=== PATIENT | female | born 1980 | race Caucasian/White ===

== ENCOUNTER 2017-10-16 09:03 | Emergency (ER) | payer BC, OTHER ==
[~2017-10-16] VITALS: Ht 167.6 cm; Wt 102.5 kg
[2017-10-16] MEDS ORDERED: LORazepam 0.5 MG TAB PO ONE (09:45)
[2017-10-16 10:14] LABS: Urine Bilirubin Negative (Negative); Urine Blood Negative /uL (Negative); Urine Color Yellow (Yellow); Urine Glucose Normal (Normal); Urine Ketone Negative (Negative); Urine Mucus FEW (None Seen); Urine Nitrite Negative (Negative); Urine RBC 2 /hpf (0 - 4); Urine Squamous Epithelial Cell FEW /hpf (<5); Urine Urobilinogen Normal (Negative)
[2017-10-16 10:41] LABS: Basophils # (auto) 0.1 uL; Eosinophils # (auto) 0.1 uL; Hemoglobin 14.4 g/dL (12.2-16.2); Lymphocytes # (auto) 2.1 uL; Mean Platelet Volume 7.9 fL (6.9-10.8); Monocytes # (auto) 0.5 uL; Nucleated Red Blood Cells % 0.1 %; Platelet Count (auto) 267 10^3/uL (140-450)
[2017-10-16 10:43] LABS: Basophils % (auto) 0.8 % (0.0-2.0); Eosinophils % (auto) 1.2 % (0.0-7.0); Hematocrit 42.7 % (36.0-46.0); Lymphocytes % (auto) 25.9 % (10.0-50.0); Mean Corpuscular Hemoglobin 34.1 pg (28.0-32.0); Mean Corpuscular Hgb Conc. 33.7 g/dL (32.0-36.0); Mean Corpuscular Volume 101.3 fL (80.0-100.0); Monocytes % (auto) 6.3 % (0.0-12.0); Neutrophils # (auto) 5.4 uL; Neutrophils % (auto) 65.8 % (37.0-80.0); Red Cell Distribution Width 13.3 % (11.8-14.3); White Blood Cell 8.2 10^3/uL (4.4-10.8)
[2017-10-16 10:55] LABS: Albumin 3.7 g/dL (3.4-5.0); Calcium 8.9 mg/dL (8.5-10.1); Potassium 4.9 mmol/L (3.5-5.1)
[2017-10-16 10:58] LABS: Bilirubin, Total 0.2 mg/dL (0.2-1.0); Total Protein 7.4 g/dL (6.4-8.2)
[2017-10-16 12:14] VITALS: BP 151/94
== END 2017-10-16 12:41 | disposition home or self-care (01) ==
LOC: ER 09:03
DX: F41.9 Anxiety disorder, unspecified (principal); F17.210 Nicotine dependence, cigarettes, uncomplicated
CPT/HCPCS: 36415; 80053; 81001; 84484; 85025; 93005

== ENCOUNTER 2017-11-06 07:01 | Inpatient (IN) | payer BC ==
[~2017-11-06] VITALS: Ht 167.6 cm; Wt 101.5 kg
[2017-11-06 07:45] LABS: Urine Bacteria FEW /hpf (None Seen); Urine Blood Negative /uL (Negative); Urine Hyaline Cast MANY /lpf (0 - 2); Urine Mucus MODERATE (None Seen); Urine Specific Gravity 1.039 (1.001-1.035); Urine WBC 5 /hpf (0 - 5)
[2017-11-06 07:47] LABS: Eosinophils # (auto) 0.1 uL; Monocytes # (auto) 0.4 uL; Red Blood Cells 4.61 10^6/uL (4.0-5.20); White Blood Cell 8.7 10^3/uL (4.4-10.8)
[2017-11-06 07:49] LABS: Basophils # (auto) 0.1 uL; Basophils % (auto) 0.7 % (0.0-2.0); Eosinophils % (auto) 1.6 % (0.0-7.0); Hemoglobin 15.9 g/dL (12.2-16.2); Lymphocytes # (auto) 2.6 uL; Lymphocytes % (auto) 29.5 % (10.0-50.0); Mean Corpuscular Hemoglobin 34.4 pg (28.0-32.0); Mean Corpuscular Hgb Conc. 33.7 g/dL (32.0-36.0); Monocytes % (auto) 4.9 % (0.0-12.0); Neutrophils # (auto) 5.5 uL; Neutrophils % (auto) 63.3 % (37.0-80.0); Nucleated Red Blood Cells % 0.2 %; Platelet Count (auto) 320 10^3/uL (140-450); Red Cell Distribution Width 13.4 % (11.8-14.3)
[2017-11-06 07:59] LABS: Albumin 4.4 g/dL (3.4-5.0); BUN/Creatinine Ratio 9.8; Calcium 9.5 mg/dL (8.5-10.1); Potassium 4.3 mmol/L (3.5-5.1)
[2017-11-06 08:02] LABS: Bilirubin, Total 0.6 mg/dL (0.2-1.0); Total Protein 8.3 g/dL (6.4-8.2)
[2017-11-06] MEDS ORDERED: NITROGLYCERIN 0.4 MG SL TAB SL PRN (12:30)
[2017-11-06] MEDS ORDERED: METOPROLOL TARTRATE 25 MG TAB PO ONE ×2 (12:30→12:45)
[2017-11-06] MEDS ORDERED: ACETAMINOPHEN 500 MG TAB PO PRN (12:30)
[2017-11-06] MEDS ORDERED: LORazepam 0.5 MG TAB PO PRN (12:30)
[2017-11-06] MEDS ORDERED: PROMETHAZINE HCL 25 MG/ML 1ML IV PRN (12:30)
[2017-11-06] MEDS ORDERED: TEMAZEPAM 15 MG CAP PO PRN (12:30)
[2017-11-06] MEDS ORDERED: cloNIDine HCL 0.1 MG TAB PO ONE (12:30)
[2017-11-06] MEDS ORDERED: cefTRIAXone 1GM/10ml IVPUSH 10 ML IV ONE (12:30)
[2017-11-06] MEDS ORDERED: ASPirin 81 mg TAB PO ONE ×2 (12:30→12:45)
[2017-11-06] MEDS ORDERED: LACTULOSE 20Gm/30ML SOLN PO PRN (12:30)
[2017-11-06] MEDS ORDERED: MORPHINE SULF INJ 2 MG/ML SYRINGE 1ML IV PRN (12:30)
[2017-11-06] MEDS ORDERED: NITROGLYCERIN 0.2MG/HR TOPICAL PATCH TD ONE (12:45)
[2017-11-06] MEDS ORDERED: MORPHINE SULFATE 10 MG/ML INJ 1ML SDV IV PRN (12:45)
[2017-11-06] MEDS: SODIUM CHLORIDE 0.9% 1,000 ML IV SCH ×2 (14:15→22:30)
[2017-11-06] MEDS ORDERED: LIDOCAINE 2%HCL (LOCAL ANESTH.) INJ 20ML MDV ONE (15:51)
[2017-11-06] MEDS ORDERED: IODIXANOL 320MG/ML 100ML BTL IV ONE (15:51)
[2017-11-06] MEDS ORDERED: ANGIOMAX 250 MG VIAL IV ONE (16:07)
[2017-11-06] MEDS ORDERED: MIDAZOLAM HCL 1MG/1ML-2 ML VIAL ONE (16:08)
[2017-11-06] MEDS ORDERED: fentaNYL CITRATE 100 MCG/2 ML VL ONE (16:08)
[2017-11-06] MEDS ORDERED: diphenhdrAMINE HCL 50 MG/1 ML VL ONE (16:10)
[2017-11-06] MEDS ORDERED: THIAMINE HCL 100 MG/ML 2ML VIAL IV ONE (16:30)
[2017-11-06] MEDS ORDERED: chlordiazePOXIDE HCL 25 MG CAP PO PRN (16:30)
[2017-11-06] MEDS ORDERED: DEXTROSE (50%) 50ML SYRG IV PRN (16:30)
[2017-11-06] MEDS ORDERED: PRASUGREL HCL 10 MG TAB ONE (16:50)
[2017-11-06] MEDS ORDERED: CLOPIDOGREL BISULFATE 75 MG TAB PO ONE (17:45)
[2017-11-06] MEDS: HYDROcodone-ACET 5/325MG TAB PO PRN (20:42)
[2017-11-06 21:00] VITALS: BP 136/86
[2017-11-06] MEDS: ACCU-CHEK COMFORT CURVE STRIP VI SCH (21:36)
[2017-11-06] MEDS: FAMOTIDINE 20 MG TAB PO SCH (21:37)
[2017-11-06] MEDS: chlordiazePOXIDE HCL 5 MG CAP PO SCH (21:37)
[2017-11-06] MEDS: METOPROLOL TARTRATE 25 MG TAB PO SCH (21:41)
[2017-11-06] MEDS ORDERED: ATORVASTATIN 20 MG TAB PO SCH (22:00)
[2017-11-06 23:54] VITALS: BP 136/86
[2017-11-07] MEDS: ACCU-CHEK COMFORT CURVE STRIP VI SCH ×3 (00:59→12:43)
[2017-11-07] MEDS: chlordiazePOXIDE HCL 5 MG CAP PO SCH ×3 (00:59→12:42)
[2017-11-07 05:34] VITALS: BP 126/83
[2017-11-07 07:06] LABS: Basophils # (auto) 0 uL; Basophils % (auto) 0.4 % (0.0-2.0); Eosinophils # (auto) 0.1 uL; Eosinophils % (auto) 1.4 % (0.0-7.0); Lymphocytes # (auto) 2.1 uL; Nucleated Red Blood Cells % 0.1 %; Platelet Count (auto) 243 10^3/uL (140-450)
[2017-11-07 07:09] LABS: Hematocrit 39.4 % (36.0-46.0); Hemoglobin 13.1 g/dL (12.2-16.2); Lymphocytes % (auto) 32.2 % (10.0-50.0); Mean Corpuscular Hemoglobin 33.9 pg (28.0-32.0); Mean Corpuscular Hgb Conc. 33.3 g/dL (32.0-36.0); Mean Corpuscular Volume 101.9 fL (80.0-100.0); Monocytes # (auto) 0.4 uL; Monocytes % (auto) 6.9 % (0.0-12.0); Neutrophils # (auto) 3.8 uL; Neutrophils % (auto) 59.1 % (37.0-80.0); Red Blood Cells 3.87 10^6/uL (4.0-5.20); Red Cell Distribution Width 13.2 % (11.8-14.3); White Blood Cell 6.4 10^3/uL (4.4-10.8)
[2017-11-07 07:34] LABS: Albumin 2.9 g/dL (3.4-5.0); BUN/Creatinine Ratio 14.6; Bilirubin, Total 0.4 mg/dL (0.2-1.0); Calcium 8.1 mg/dL (8.5-10.1)
[2017-11-07 08:00] VITALS: BP 123/76
[2017-11-07] MEDS: HYDROcodone-ACET 5/325MG TAB PO PRN (08:39)
[2017-11-07] MEDS: FAMOTIDINE 20 MG TAB PO SCH (08:41)
[2017-11-07 09:00] VITALS: BP 122/85
[2017-11-07] MEDS ORDERED: cefTRIAXone 1GM/10ml IVPUSH 10 ML IV SCH (09:00)
[2017-11-07] MEDS ORDERED: NITROGLYCERIN 0.2MG/HR TOPICAL PATCH TD SCH (10:00)
[2017-11-07] MEDS ORDERED: ASPirin 81 mg TAB PO SCH (10:00)
[2017-11-07] MEDS ORDERED: THIAMINE HCL 100 MG/ML 2ML VIAL IV SCH (10:00)
[2017-11-07] MEDS: METOPROLOL TARTRATE 25 MG TAB PO SCH (10:20)
[2017-11-07 13:00] VITALS: BP 128/78
[2017-11-07 16:40] VITALS: BP 125/85
[2017-11-07 17:00] VITALS: BP 130/87
== END 2017-11-07 18:00 | disposition home or self-care (01) | DRG 247 ==
LOC: ER 07:01 → TELE 07:02 → TELE-EAST 19:35
PROVIDERS: ADMIT Internal Medicine; ATTEND Internal Medicine
PROC: 027035Z Dilation of Coronary Artery, One Artery with Two Drug-eluting Intraluminal Devices, Percutaneous Approach (ICD-10-PCS; principal; 2017-11-06)
PROC: 4A023N7 Measurement of Cardiac Sampling and Pressure, Left Heart, Percutaneous Approach (ICD-10-PCS; 2017-11-06)
PROC: B2111ZZ Fluoroscopy of Multiple Coronary Arteries using Low Osmolar Contrast (ICD-10-PCS; 2017-11-06)
DX: I25.10 Atherosclerotic heart disease of native coronary artery without angina pectoris (principal); K76.0 Fatty (change of) liver, not elsewhere classified; E66.9 Obesity, unspecified; N39.0 Urinary tract infection, site not specified; F17.210 Nicotine dependence, cigarettes, uncomplicated; F41.9 Anxiety disorder, unspecified; R74.8 Abnormal levels of other serum enzymes; Z82.49 Family history of ischemic heart disease and other diseases of the circulatory system; Z87.442 Personal history of urinary calculi; Z68.36 Body mass index [BMI] 36.0-36.9, adult; Z90.89 Acquired absence of other organs; K59.00 Constipation, unspecified; N28.89 Other specified disorders of kidney and ureter
CPT/HCPCS: 36415; 71046; 76705; 80053; 80061; 81001; 81025; 82550; 82962; 83036; 84484; 85025; 85379; 85652; 86141; 86850; 86900; 86901; 87086; 92928; 93005; 93458; 93970; 96374; 99152; 99153; C1874; J2250; Q9967

== ENCOUNTER 2021-10-27 20:03 | Emergency (ER) | payer SELFPAY ==
[~2021-10-27] VITALS: Ht 170.2 cm; Wt 77.1 kg
[2021-10-27 20:10] VITALS: BP 126/84
== END 2021-10-27 21:57 | disposition left against medical advice (07) ==
LOC: EDBD 20:03 → ER 20:05
DX: R45.851 Suicidal ideations (principal); Z53.21 Procedure and treatment not carried out due to patient leaving prior to being seen by health care provider

== ENCOUNTER 2024-07-04 04:40 | Emergency (ER) | payer BC, MEDICAID ==
[~2024-07-04] VITALS: Ht 167.6 cm; Wt 103.0 kg
[2024-07-04 11:07] LABS: Basophils # (auto) 0 10 ^3/uL (0-0.2); Basophils % (auto) 0.5 % (0.0-2.0); Eosinophils # (auto) 0.1 10 ^3/uL (0-0.8); Eosinophils % (auto) 1.1 % (0.0-7.0); Hematocrit 40.2 % (36.0-46.0); Hemoglobin 13.6 g/dL (12.2-16.2); Lymphocytes # (auto) 1.7 10 ^3/uL (0.4-5.4); Lymphocytes % (auto) 23.4 % (10.0-50.0); Mean Corpuscular Hgb Conc. 33.8 g/dL (32.0-36.0); Mean Corpuscular Volume 100.6 fL (80.0-100.0); Monocytes # (auto) 0.3 10 ^3/uL (0-1.3); Monocytes % (auto) 4.7 % (0.0-12.0); Neutrophils # (auto) 5.1 10 ^3/uL (1.6-8.6); Neutrophils % (auto) 70.3 % (37.0-80.0); Platelet Count (auto) 242 10^3/uL (140-450); Red Blood Cells 3.99 10^6/uL (4.0-5.20); Red Cell Distribution Width 13.6 % (11.8-14.3); White Blood Cell 7.3 10^3/uL (4.4-10.8)
[2024-07-04 11:21] LABS: Alanine Aminotransferase 31 U/L (7-40); Albumin 4.3 g/dL (3.2-4.8); Alkaline Phosphatase 81 U/L (46-116); Anion Gap 3 (5-15); Aspartate Aminotransferase 17 U/L (13-40); BUN/Creatinine Ratio 9.9 (10.0-20.0); Blood Urea Nitrogen 8 mg/dL (9-23); Calcium 9.5 mg/dL (8.7-10.4); Carbon Dioxide 26 mmol/L (20-30); Chloride 109 mmol/L (98-107); Glucose 98 mg/dL (74-106); Potassium 3.5 mmol/L (3.5-5.1); Sodium 138 mmol/L (136-145)
[2024-07-04 11:22] LABS: Bilirubin, Total 0.3 mg/dL (0.2-1.0); Total Protein 6.6 g/dL (5.7-8.2)
[2024-07-04] MEDS ORDERED: NAP500T GT (12:22)
[2024-07-04 12:33] VITALS: BP 161/82; PULSE 91; RESP 16; TEMP 97.6; O2SAT 99
== END 2024-07-04 12:34 | disposition home or self-care (01) ==
LOC: ER 04:40
DX: K41.90 Unilateral femoral hernia, without obstruction or gangrene, not specified as recurrent (principal); R10.31 Right lower quadrant pain; F41.9 Anxiety disorder, unspecified; F17.210 Nicotine dependence, cigarettes, uncomplicated; Z98.890 Other specified postprocedural states
CPT/HCPCS: 36415; 74176; 80053; 85025